=== PATIENT | male | born 1980 | race Caucasian/White ===

== ENCOUNTER 2018-12-10 08:45 | Observation (INO) ==
[~2018-12-10 08:45] MED LIST: LIDOCAINE W/ SODIUM BICARB 0.5 ML SYR ONE; LIDOCAINE W/ SODIUM BICARB 0.5 ML SYR SUBD ONE; Lactated Ringers 1,000 ML PRIMARY IV ONE; Nasal Sanitizer POPSWAB ampule 3 AMP (Nozin) PREOP DOSE ENOS SCH; Sodium Chloride 0.9% 0 ML ONE; Vancomycin Inj 1gm vial ONE; Vancomycin-PHA to Dose IV PRN; ceFAZolin Inj 2gm (Premix) 0 GM/0 ML BAG IV ONE; ceFAZolin Inj 2gm (Premix) 2 GM/50 ML BAG IV ONE
[2018-12-10] MEDS ORDERED: MIDAZOLAM 5 MG/1 ML ONE (08:46)
[2018-12-10] MEDS ORDERED: REMIFENTANIL 1 MG/1 ML IV ONE ×2 (08:46→12:45)
[2018-12-10] MEDS ORDERED: fentaNYL Inj 250 MCG/5 ML VIAL ONE (08:46)
[2018-12-10] MEDS ORDERED: KETAMINE 100 MG/1 ML - 5 ML ONE (08:46)
[2018-12-10] MEDS ORDERED: REMIFENTANIL HCL 2 MG VIAL IV ONE (08:47)
[2018-12-10] MEDS ORDERED: Clindamycin 900mg (Premix) 900 MG/50 ML BAG IV ONE ×2 (08:47→12:02)
[2018-12-10] MEDS ORDERED: Propofol 1,000 MG/100 ML VIAL IV ONE ×2 (08:47→11:27)
[2018-12-10] MEDS ORDERED: Sodium Chloride 0.9% 250 ML ONE (08:53)
[2018-12-10] MEDS ORDERED: ROCURONIUM 10 MG/1 ML - 5 ML VIAL IVP ONE (09:01)
[2018-12-10] MEDS ORDERED: ONDANSETRON 4 MG/2 ML VIAL ONE ×2 (09:08→12:20)
[2018-12-10] MEDS ORDERED: Sodium Chloride 0.9% vial 10 ML ONE ×2 (09:55→12:16)
[2018-12-10] MEDS ORDERED: BUPIVACAINE 0.25% W/ EPI - 10 ML VIAL ONE (09:55)
[2018-12-10] MEDS ORDERED: BACITRACIN 50,000 UNIT VIAL IRRIG ONE ×2 (09:55→12:17)
--- NOTE | 2018-12-10 10:02 | GEN.OPNOTE ---
Operative Note Surgery Date: 12/10/18 Preoperative Diagnosis: 1. Left L3 radiculopathy. 2. Left L3-4 herniated nucleus pulposus paracentral on the left with extruded disc material extending behind the L3 vertebral body up to the level of the bottom of the L2 pedicle. Postoperative Diagnosis: 1. Left L3 radiculopathy. 2. Left L3-4 herniated nucleus pulposus paracentral on the left with extruded disc material extending behind the L3 vertebral body up to the level of the bottom of the L2 pedicle. Procedure: 1.) Left L3-4 microlumbar discectomy. (CPT code: 46470). 2.) Use of the intra-operative microscope for the the microsurgical techniques used for the left L3-4 microdiscectomy. (CPT code: 44599). 3.) Use of intra-operative fluoroscopy for localization of the correct surgical level. 4.) Use of intra- operative neuromonitoring including EMG's and SSEP's. Surgeon: Olman Swanson MD Service Planner: MELANIA Alberto Anesthesia Provider: Deja Cornelius CRNA Anesthesia Type: General Estimated Blood Loss (mL): 20 Fluids: See anesthesia record Pathology: None Indications: Mr. Sarabia is a 38 year old gentleman who presented to my [facility] with back pain, left buttocks, and left leg pain. He reports numbness in his left thigh. He denies weakness in his legs. The only way to relieve his pain is to lay flat. He can't stand or sit for more than a few minutes. He has been taking hydrocodone, mobic, and flexeril for pain control. He had an MRI scan of the lumbar spine demonstrating a left paracentral herniated nucleus propulsis with extruded disc material extending behind the L3 vertebral body in the lateral recess to the level of the inferior border of the L2 pedicle. We discussed the treatment options of continued expectant management, management with medications, physical therapy, lumbar percutaneous injections, or surgical treatment. We discussed that surgical treatment, a left L3-4 microlumbar discectomy was the most likely treatment to provide significant and durable relief of his symptoms. He wished to proceed with surgical treatment and presents today for his surgical procedure. Findings: 1.) Very large subligamentous left L3-4 herniated nucleus propulsis. 2.) Rostrally migrated extruded fragments of disc behind the L3 vertebral body. Complications: None Operative Summary: Mr. Sarabia was met in the preoperative area. I reviewed his surgical history and physical in his surgical chart. We reviewed the procedure to be performed and we were both in agreement on the procedure and this matched what was written on the patient's consent form. Since Mr. Sarabia was scheduled for surgery quickly secondary to his significant level of discomfort and since he left quite a distance from [facility] living in [place] a preoperative discussion of the basic technical aspects of the procedure the potential benefits the procedure and the numerous risks of the procedure were not able to be discussed and a follow-up clinic visit. Therefore those items were discussed with him and his mother in the preoperative area today before going back to the operating room suite. I discussed the technical aspects of the procedure including cutting the skin, dissecting through the subcutaneous fatty tissue, stripping the muscle off of the spinous process and dissecting down where the spinous process which is vertical in the prone position transitions into the horizontal lamina. We discussed that the muscle would be retracted with a self-retaining retractor. We discussed the procedure would be performed with a microscope. We discussed that some of the lamina and the medial aspect of the facet joint overhanging the very lateral aspect of the spinal canal would be removed with a high-speed drill. A ligament underneath the bone would be removed exposing the thecal sac containing the spinal fluid and the nerve roots centrally in the canal as well as exposing the transversing nerve root at the level. We discussed the nerve root would be gently retracted and the disc would be cut into with a knife and disc material be removed with an instrumented bites and remove soft tissue. We discussed that the extruded fragments of disc above the disc space would be teased out with other instruments and removed as well. We discussed the potential benefit of the procedure reduction of his left leg pain. We discussed that the relief of pain is usually fairly quickly realized after the surgical procedure although all the pain may not initially resolved. We discussed the numbness and tingling and weakness which indicate nerve damage generally take longer to recover in the recovery may not be complete. We discussed the numerous risks of the procedure. We discussed risk of blood loss with the likelihood of enough blood loss occurring to require transfusion being remote. We did however discuss the remote risk of injury to the major blood vessels anterior to the spine at the aorta and the vena cava. We discussed that such an injury while rare could result in catastrophic blood loss, could require massive blood transfusion, and can potentially be life threatening injury. We discussed the risk of infection is on the order of 1% similar to other common surgical procedures. We did discuss that if there was infection with an epidural abscess in the spinal canal potentially representing a discitis/osteomyelitis at this generally we will require re-operation for irrigation debridement of the infected fluid and tissue. We discussed the risk of a dural tear and subsequent CSF leak. We discussed that I estimated the risk of this occurring is approximately 5%. If there is a posterior breach of the dura during the decompression, another words I am looking at the small breach, this can generally be sewn up primarily with suture just like any other tissue plane. If a anterior breach occurs however when removing the disc from the disc space this generally is going to be on the other side of the dura and not be able to be sewn up primarily but he can be treated by covering it with a dural substitute and sealing that dural substitute to the dura over the dural breach with tissue sealants. Hemostatic agents placed over this provide another layer of protection from persistent CSF leak from a leak of this type. We did discuss a small risk that there can be a continuous leakage of CSF even despite primary repair of the CSF leak and this can form a fistula and work its way through to leak from the incision. If this were to occur generally the incision would be oversewn with suture and the patient would be put at bed rest for 3-5 days and in the far majority of cases this will be the end of the leak. Persistent leaks may occur that don't leak from the skin incision and generally these would be treated either by placing a lumbar drain for several days which would require the patient to be hospitalized during that period or possibly the performance of a blood patch by entry interventional specialist blood taken from a vein and injected into the epidural space with the blood traveling around the spinal canal outside the dura inside the bony canal and when the blood coagulates basically has the potential to seal the small leak. We discussed for recalcitrant CSF leak cysts can require re-operation, re-exploration, and a reattempt at primary repair or other repair of the dural rent. We discussed risks of a postoperative hematoma or seroma. We discussed that generally they'll be fluid in the surgical bed and would be seen on imaging for weeks to months after the surgical procedure and sometimes the fluid may persist for years and even for a lifetime. The difference with a postoperative hematoma or seroma is that it is an expanding fluid collection or blood clot and therefore has mass effect similar to a disc herniation and generally this will become symptomatic by worsening back pain and or worsening leg symptoms. Generally if this were to occur it would occur within the first 24 hours after the surgical procedure when the patient would typically still be in the hospital. Generally this does require reoperation to remove the hematoma or seroma and possible placement of a drain in the surgical bed but generally this has no significant sequela on the patient's overall outcome after the procedure except for perhaps an extra day or two in the hospital. Rarely these can occur on a delayed basis occurring days, weeks, or months after the surgical procedure but could still require readmission and re-operation. We discussed the risk of recurrent disc herniation. We discussed that the risk of this is approximately 10%, but this can occur from waking up in the PACU to decades later in life. If his symptoms with a recurrent disc herniation remain primarily leg pain a re-do discectomy is generally performed, however with a third or fourth disc herniation even with primarily leg symptoms without significant back pain, fusion of the level is generally considered. We discussed the further degenerative changes at the operative level from aging and use the spine may require fusion of the level later in life. We discussed the small risk of worsening of the symptoms or new symptoms secondary to the manipulations of the nerves during the surgical procedure. The nerves to need to be retracted in order to remove the disc herniation. We discussed if new or worse symptoms occur at that generally these would be transient, getting better and weeks to months, however there is a possibility that was new or worsened as could be permanent. We discussed the remote risk of complete paralysis from the waist down including loss of all motor sensory bowel bladder sexual function. We discussed the remote risk of from the induction of anesthesia. We discussed remote risk of blindness undergoing a prone or face down procedure. We discussed the small risk of the nerve palsy waking up with numbness, tingling, or weakness in extremity typically the arms from pressure over the nerves during the surgical procedure. There is no movement of the patient during the surgical procedure and although all of the bony prominences and nerve tracks are padded as best as possible prior to the procedure there is always a possibility of a pressure injury to the nerves in the chest/axillary area or in the upper extremities and that generally these do improve if they occur but generally they take months to years to improve since nerves recover at a millimeter per day or an inch per month and the recovery may not be complete. Mr. Sarabia stated that he understood our discussion. I answered any questions that he had to his satisfaction. He wished to proceed with surgical procedure. Mr. Sarabia was brought back to the operating room suite and put under general anesthesia and intubated by the anesthesia staff. He had a Rosas catheter placed in his bladder for the procedure. He had pneumatic compression hose placed on his lower legs bilaterally. Mr. Sarabia was carefully rolled over onto the [facility] surgical table with his arms gently positioned upwards with his shoulders abducted less than 90. His arms were well-padded with foam padding on top of the padding of the surgical armboards. The region of his chest and axilla was checked bilaterally to make sure that there are no pressure points over the region of the brachial plexus bilaterally. His nipples were checked be below the chest pad of the Surinder table. All bony prominences were well padded. His Rosas catheter was checked be free from kinks. His pneumatic compression hose was attached pneumatic c ompression device. The C-arm fluoroscopy was used to help localize the skin incision for the approach to the intended surgical level. The skin was marked in the midline with a skin marker was several crosshatches. Mr. Sarabia was prepped and draped in the usual and standard fashion. He was given 900 mg of Cleocin and vancomycin as dosed by the pharmacy IV for perioperative antibiosis. He was given 10 mg of Decadron IV. A standard surgical timeout was performed identifying the correct patient, the correct procedure, and the correct equipment being available for the procedure. The intended skin incision was injected subcutaneously with quarter percent Marcaine with 1 in 200,000 epinephrine. 10 mL of local anesthetic was injected. The skin was incised with a 10 blade scalpel and all dermal and superficial bleeding points were coagulated with bipolar cautery. Dissection was continued down through the copious subcutaneous fatty tissue down to the lumbar fascia. The lumbar fascia was incised along the border of the spinous processes on the left with Bovie cautery and dissection was continued with the Bovie cautery and a subperiosteal dissection down the spinous process and out laterally over the lamina. When the inferior aspect of the lamina was identified a [place] 4 was placed underneath the lamina and the level was localized using lateral fluoroscopy. The instrument was underneath the L3 lamina therefore at the correct L3-4 surgical level. Continued dissection was performed in a subperiosteal fashion exposing the majority of the L3 lamina, the leading edge of the L4 lamina, and the medial aspect of the left L3-4 facet joint. A Amber retractor was placed for self-retaining retraction. The operative microscope was brought into the surgical field and used for microsurgical techniques used for the discectomy. The [place] high- speed electric drill with a matchstick bit was used to perform a hemilaminotomy and medial facetectomy at L3-4 on the left. In up angled curette was then used to strip the insertion of the yellow ligament from underneath the remaining aspect of the L3 lamina. The plane between the yellow ligament and the dura was established and the yellow ligament was completely removed in the crow-canal and lateral recess. This exposed the thecal sac and the transversing L4 nerve root. A [place] 4 instrument was used to carefully dissect adjacent to the thecal sac above the shoulder of the transversing L4 nerve root and this identified the L3- 4 disc space proper. The first few millimeters in the very lateral aspect of the canal the disc demonstrated just a subligamentous bulge however when more medially retracting the dura there was marked tenting up under the thecal sac of extruded disc material ruptured through the annulus but still contained within the very thin stretched out posterior longitudinal ligament with a very steep arise of the ligament containing the extruded disc material. Epidural veins over the disc space were coagulated with bipolar cautery turned down to a low setting and cut with microscissors. A [place] nerve root retractor was used to gently retract the thecal sac and the takeoff of the transversing L4 nerve root exposing the base of the disc extrusion contained within the very thin stretched ligament. An annulotomy was performed in the region of the disc bulge lateral to the disc herniation with a 15 blade scalpel and disc material was removed with a pituitary rongeur. When a nerve hook placed through the disc space up in to the area of the disc extrusion did not produce significant disc material a vertical cut was placed in the base of the stretched out ligament and disc material extruded out of this opening. A substantial amount of disc material was removed from this thickened ligamentous pocket bite teasing out further disc material with a nerve hook and removing the fragments with a pituitary rongeur. Additional disc material was removed in the disc space proper by dissecting disc in the disc space underneath the annulotomy as well as more medially subligamentously underneath the thecal sac and laterally subligamentously under the proximal neuroforamen where the annulus and ligament appeared to be producing significant neuroforaminal stenosis. The fragments of disc were then subsequently removed with a straight as well as up-biting and backbiting p ituitary rongeurs. The thecal sac was then retracted more rostrally behind the posterior inferior aspect of the L3 vertebral body and this area was explored with Ryder instrument which produced several fragments of rostrally extruded disc material was then removed with a pituitary rongeur. Additional disc was removed in this area with a ball-tip instrument and with the medium down-biting curet. The fragments of disc loosened were removed with a pituitary rongeur. Excellent decompression of the spinal canal lateral recess neuroforamen and exiting and transversing nerve root as well as behind the posterior inferior aspect of the L3 vertebral body was assured both by visual inspection as well as by palpation of the Carson instrument in the canal, in the lateral recess, behind the L3 vertebral body, and bypassing the instrument above and below the exiting nerve root in its neuroforamen and above and below the transversing nerve root as it transversed medial to its pedicle. The surgical site was inspected and it was quite dry with minimal bleeding throughout the entire procedure. No additional hemostasis needed to be performed. The surgical site was copiously irrigated with bacitracin irrigation. FloSeal hemostatic agent was then placed in the lateral recess and over all exposed dural elements and over the hemilaminotomy and medial facetectomy site. Because of the depth of the spine in the depth of the subcutaneous fatty tissue was decided to sprinkle half a gram of vancomycin powder into the deep surgical site and another half a gram was sprinkled above the fascial layer after it was closed. The fascial layer was closed tightly with #1 Vicryl suture in an interrupted fashion. The surgical site was again irrigated with bacitracin irrigation. The other half a gram of vancomycin was sprinkled over the fascial layer. The deep subcutaneous fatty tissue was reapproximated with 0 Vicryl suture in an interrupted fashion. The more superficial fatty tissue was reapproximated with 2-0 Vicryl suture in an interrupted fashion. The dermis and superficial subcutaneous tissue was reapproximated with 3-0 Vicryl suture in an inverted interrupted fashion. The [place] drape was pulled back from the skin edges the skin edges were reapproximated with surgical stainless steel axel. A Prevena suction dressing was placed over the incision. All surgical drapes removed from Mr. Sarabia. He was carefully rolled over onto the PACU stretcher. He was awoken and a the anesthesia staff. He was taken the recovery room in stable condition. All surgical counts reported as correct by the scrub and circulating personnel. A Physician's Service Planner, Mrs. Zari Nuñez PA-C, assisted with the procedure including the exposure and closure portions of the procedure. She also provided irrigation and suctioning throughout the procedure. She also carefully and skillfully retracted the nerve structures during the more critical portion of the procedure the removal of the disc herniation.
[2018-12-10] MEDS ORDERED: LIDOCAINE HCL 2 % 10 ML JELLY URO-JECT TOPICAL ONE ×2 (10:05→11:35)
[2018-12-10] MEDS ORDERED: DEXAMETHASONE PF 10 MG/1 ML VIAL ONE (11:00)
[2018-12-10] MEDS ORDERED: Lactated Ringers 1,000 ML PRIMARY IV ONE ×2 (11:31→11:44)
[2018-12-10] MEDS ORDERED: Vancomycin Inj 1gm vial ONE (12:55)
[2018-12-10] MEDS ORDERED: BUPivacaine Liposome/PF (Exparel) Inj 20ml vial INFIL ONE (13:00)
[2018-12-10] MEDS ORDERED: Prochlorperazine Edisylate Inj 10mg/2ml vial IVP PRN ×2 (13:26→15:25)
[2018-12-10] MEDS ORDERED: ATROPINE SULFATE 0.4 MG/1 ML VIAL IVP PRN (13:26)
[2018-12-10] MEDS ORDERED: fentaNYL Inj 100 MCG/2 ML VIAL IVP PRN (13:26)
[2018-12-10] MEDS ORDERED: HYDROmorphone 2 MG/1 ML IVP PRN (13:26)
[2018-12-10] MEDS ORDERED: LIDOCAINE W/ SODIUM BICARB 0.5 ML SYR SUBD PRN (13:26)
[2018-12-10] MEDS ORDERED: ONDANSETRON 4 MG/2 ML VIAL IVP PRN ×2 (13:26→15:25)
--- NOTE | 2018-12-10 13:26 | CRNA.PROGR ---
Anesthesia Time - Procedure/Recovery Time Start Date: 12/10/18 End Date: 12/10/18 Anesthesia : Time In: 10:16 Anesthesia : Time Out: 13:53 Anesthesia : Total Time: 217 - Total Anesthesia Time Total Anesthesia Time (minutes): 217 - Other Weight: 133.81 kg Height: 6 ft Body Mass Index (BMI): 40.0 Physical Status: P2 Anesthesia Type: General Anesthesia : ET (TIVA)
[2018-12-10] MEDS ORDERED: Lactated Ringers 1,000 ML PRIMARY IV SCH (13:30)
[2018-12-10] MEDS ORDERED: DIAZEPAM 10 MG TABLET PO PRN (15:25)
[2018-12-10] MEDS ORDERED: LISINOPRIL 20 MG TABLET PO SCH (15:25)
[2018-12-10] MEDS ORDERED: Fleet Enema 133ml RECTAL PRN (15:25)
[2018-12-10] MEDS ORDERED: Vancomycin-PHA to Dose IV SCH (15:25)
[2018-12-10] MEDS ORDERED: HYDROcodone-APAP 5 MG -325 MG TABLET PO PRN (15:25)
[2018-12-10] MEDS ORDERED: MAGNESIUM 400 MG/5 ML - 30 ML (MILK OF MAGNESIA) PO PRN (15:25)
[2018-12-10] MEDS ORDERED: MAGNESIUM CITRATE 296 ML SOLUTION PO PRN (15:25)
[2018-12-10] MEDS ORDERED: DOCUSATE 100 MG CAPSULE PO PRN (15:25)
[2018-12-10] MEDS ORDERED: HYDROcodone-APAP 10 MG-325 MG TABLET PO PRN (15:25)
[2018-12-10] MEDS ORDERED: MORPHINE SULFATE 4 MG/1 ML IVP PRN (15:25)
[2018-12-10] MEDS ORDERED: BISACODYL 5 MG TABLET PO PRN (15:25)
[2018-12-10] MEDS ORDERED: Ondansetron ODT Tab 4 MG TAB PO PRN (15:25)
[2018-12-10] MEDS ORDERED: DIAZEPAM 10 MG/2 ML (5 MG/1 ML) CARPUJECT IVP PRN (15:25)
[2018-12-10] MEDS ORDERED: PROMETHAZINE 25 MG/1 ML VIAL IM PRN (15:25)
[2018-12-10] MEDS ORDERED: KETOROLAC 30 MG/1 ML VIAL ONE (15:30)
[2018-12-10] MEDS ORDERED: HYDROCHLOROTHIAZIDE 25 MG TABLET PO SCH (16:00)
[2018-12-10] MEDS: Dexamethasone Tab 4 MG TABLET PO SCH ×2 (16:20→20:50)
[2018-12-10] MEDS: HYDROcodone-APAP 7.5 MG-325 MG TABLET PO PRN (17:17)
[2018-12-10] MEDS: Clindamycin 900mg (Premix) 900 MG/50 ML BAG IV SCH (19:30)
--- NOTE | 2018-12-10 20:37 | NEURO.PROG ---
Subjective Post Op Day: 0 Pain Management: PO Rosas Catheter: No Diet: Regular Ambulating: Yes Additional Details: Awake and alert sitting in chair in med/surg room. Surgical back pain. Some left leg pain, much better however then before surgery, patient said "I can now sit up". Good/full knee flexion, dorsiflexion, plantarflexion bilaterally. Continue post-operative antibiotics. Continue post-operative pain control. Mobilize. Objective : Data - Vital Signs Vital Signs and I&O: Vital Signs - Last Taken Temperature 98.6 F 12/10/18 18:51 Pulse Rate 90 12/10/18 19:00 Respiratory Rate 20 12/10/18 18:51 Blood Pressure 154/88 12/10/18 18:51 Pulse Ox 93 12/10/18 18:51 Intake and Output (24hr x 4 totals) 12/08/18 12/09/18 12/10/18 12/11/18 05:59 05:59 05:59 05:59 Intake Total 2300 / 2300 Output Total 140 / 140 Balance 2160 / 2160
[2018-12-11] MEDS: Dexamethasone Tab 4 MG TABLET PO SCH (03:02)
[2018-12-11] MEDS: Clindamycin 900mg (Premix) 900 MG/50 ML BAG IV SCH (03:03)
[2018-12-11 03:30] VITALS: TEMP 98.4
[2018-12-11 04:54] LABS: BASOPHILS # (AUTO) 0 10*3/UL; BASOPHILS % (AUTO) 0 % (0-1); EOSINOPHILS # (AUTO) 0 10*3/UL; EOSINOPHILS % (AUTO) 0 % (0-8); Hematocrit [HCT] 39.9 % (42.0-52.0); Hemoglobin [HGB] 13.7 g/dL (14.0-18.0); LYMPHOCYTES # (AUTO) 0.76 10*3/uL; MEAN CORPUSCULAR HGB CONC 34.3 g/dL (33-37); MEAN CORPUSCULAR VOLUME 90.3 FL (80-90); MEAN PLATELET VOLUME 9.8 FL (7.4-12.2); MONOCYTES # (AUTO) 0.45 10*3/UL (0.3-0.8); MONOCYTES % (AUTO) 4.7 % (5-15); NEUTROPHILS # (AUTO) 8.25 10*3/UL; NEUTROPHILS % (AUTO) 87.1 % (50-80); RED BLOOD COUNT 4.42 10^6/uL (4.70-6.10)
[2018-12-11 05:09] LABS: PLATELET MORPHOLOGY COMMENT NORMAL MORPHOLOGY (NORM); RBC MORPHOLOGY COMMENT NORMAL MORPHOLOGY (NORM); WBC MORPHOLOGY COMMENT NORMAL MORPHOLOGY (NORM)
[2018-12-11 05:15] LABS: BLOOD UREA NITROGEN 14 mg/dL (7-22)
[2018-12-11 07:25] VITALS: BP 124/69; RESP 20; O2SAT 94
--- NOTE | 2018-12-11 07:33 | NEURO.PROG ---
Subjective Post Op Day: 1 Pain Management: PO Rosas Catheter: No Diet: Regular Ambulating: Yes Additional Details: Mr Sarabia is awake and alert and told Dr Swanson this morning that his preoperative pain has resolved. He complains of incisional pain only. He has good dorsi/plantar flexion and knee flexion bilaterally. The Prevena is intact and functioning on his back incision. He has ambulated without difficulty. He was given post op instructions including activity and incision care. He was given a post op visit to see Dr Swanson in 2 weeks in the [facility]. Plan: Discharge home today Follow up in [address] Swanson's office Objective : Data - Labs CBC and BMP: 12/11/18 04:10 12/11/18 04:10 - Vital Signs Vital Signs and I&O: Vital Signs - Last Taken Temperature 98.4 F 12/11/18 03:30 Pulse Rate 98 12/11/18 03:30 Respiratory Rate 18 12/11/18 03:30 Blood Pressure 125/72 12/11/18 03:30 Pulse Ox 92 12/11/18 03:30 Intake and Output (24hr x 4 totals) 12/09/18 12/10/18 12/11/18 12/12/18 05:59 05:59 05:59 05:59 Intake Total 4060 / 4060 Output Total 540 / 540 Balance 3520 / 3520
[2018-12-11] MEDS: HYDROcodone-APAP 7.5 MG-325 MG TABLET PO PRN ×2 (07:46→09:37)
--- NOTE | 2018-12-11 10:36 | PTI REPORT ---
Thank you for the referral of Julius Sarabia. He was seen on 12/10/18 for an inpatient evaluation status post laminectomy. SUBJECTIVE: The patient is a 38-year-old male. The patient reports he is currently going to be staying with his mom in [place]. He has two stairs to get into his house and stairs to get into the shower with hand rails available. The patient reports his pain is minimal with no numbness or tingling. The patient was previously independent. PAST MEDICAL HISTORY: Past medical history can be found in the patient's medical record. OBJECTIVE FINDINGS: General observations: Nursing okayed treatment prior to PT. The patient was issued a [place] [place] back brace. The patient is on one liter of oxygen and has a Prevena pump. The patient's oxygen saturation was 94%. Bed mobility: The patient required min assist x1 for log rolling technique for supine to sit transfer to edge of bed. Sensation: The patient had normal and intact dermatomes to bilateral lower extremities. Transfers: The patient requires contact guard assist x2 for sit to stand transfer. Ambulation: The patient was instructed to ambulate approximately 30 feet with contact guard assist x2 for safety. ASSESSMENT: The patient is a 38-year-old male that presents status post lumbar laminectomy. The patient would benefit from skilled therapy in order to improve functional mobility in order to return home safely. Problem List: Decreased strength Decreased functional mobility Short-Term Goals: To be met by discharge from inpatient: Patient will be independent with all transfers. Patient will be able to ambulate 150 feet. Patient will be able to ascend and descend a flight of stairs independently. Long-Term Goals: To be met following discharge from inpatient: Patient will be able to return home per prior level of function. TREATMENT PLAN: Patient will be seen B.I.D during the week and one time per day over the weekend as an inpatient for therapeutic exercise, functional activity, neuromuscular reeducation, gait training, and modalities as needed. INITIAL TREATMENT: Treatment today consisted of the initial evaluation followed by the patient transferring to his chair with contact guard assist x2. The patient was left in chair with OTMeka CORNEJO
--- NOTE | 2018-12-12 14:29 | OTI REPORT ---
Thank you for the referral of Julius Sarabia. He was seen on 12/10/18 for an occupational therapy inpatient evaluation status post laminectomy. SUBJECTIVE: The patient is a 38-year-old male who is being seen secondary to having a laminectomy. The patient lives in [place] but will be staying with his mom in [place] for a couple of weeks while he is recovering. Prior to admission the patient was independent with all ADLs; however, he reported that socks were difficult secondary to back pain. The patient's mom has a walk in shower. She has a lower toilet, but he rambo wants to see how he is going to do to see if he needs any of the adaptive devices. PAST MEDICAL HISTORY: Past medical history can be found in the patient's medical record. OBJECTIVE FINDINGS: General observations: The patient was instructed in his bending/lifting/twisting precautions. Activities of daily living: The patient was issued a maitre d' and practiced doffing socks. We practiced with a soft sock aide and that did not go as well so we may try a hard one tomorrow. The patient's pain levels increased the more we worked with him so we took a break from ADLs. The patient was instructed in how to don lower extremity clothing using the maitre d'. Bed mobility/Transfers: The patient was instructed in log rolling and functional transfer safety. ASSESSMENT: The patient would benefit from at least one more session of OT to go over ADLs and adaptive devices. Tomorrow we will try the hard sock aide for lower extremity dressing and improved independence while following precautions. Short-Term Goals: To be met by discharge from inpatient: Patient will be able to dress self with adaptive devices. Patient will be able to complete all functional transfers including log roll with stand by assist. Patient will be able to complete toilet transfer independently. Long-Term Goals: To be met following discharge from inpatient: Patient will be discharged home with his mom, demonstrating modified independence with all ADLs and functional transfers. TREATMENT PLAN: Patient will be seen one more time as an inpatient to address the above goals and objectives. INITIAL TREATMENT: Treatment today consisted of the initial evaluation followed by instruction in log rolling and instruction on adaptive devices for lower extremity dressing. The patient was issued a maitre d' for increased independence. CLEMENTE
--- NOTE | 2018-12-12 14:34 | OT AM DAY ---
Diagnosis : S/P LAMINECTOMY AM - Occupational Therapy S: The patient reports he is feeling a little better; he is a little sore at the surgical site. O: Today the patient started getting out of bed without log rolling. He was cued to do his log rolls and was able to do so after cueing. Once sitting edge of bed the patient used his computer equipment repairer to doff his socks and don his shorts. He was issued a hard/wide sock aide to don socks which he was able to do independently. The patient does wear size 13 shoes. The patient was instructed on how to don his brace which he was able to do independently. A: Overall the patient did well. P: Patient will be discharged from OT. [facility]Van
--- NOTE | 2018-12-12 14:37 | PT AM DAY ---
Diagnosis : S/P LAMINECTOMY AM - Physical Therapy S: The patient reports no new changes. O: The patient was able to ambulate x125 feet with stand by assist and had good balance. He was able to ascend and descend 12 stairs while using the guard rail with right leg up and left leg down. He reported that his left leg had a little more of the symptoms but now these symptoms have seemed to resolve. A: The patient did very well and demonstrated good balance and safety. P: Patient will be discharged to home. CLEMENTE
== END 2018-12-11 10:30 | disposition home or self-care (01) ==
LOC: MED/SURG 08:45 → OR 08:45 → OPS 08:46
PROVIDERS: ADMIT Neurological Surgery; ATTEND Neurological Surgery